=== PATIENT | male | born 1985 | race Caucasian/White ===

== ENCOUNTER 2018-04-18 21:18 | Emergency (ER) | payer MEDICAID, OTHER ==
[2018-04-19 01:35] LABS: TROPONIN-I < 0.012 ng/ml (0.000-0.120)
== END 2018-04-19 01:50 | disposition home or self-care (01) ==
LOC: FTE 04-19 01:50
DX: K21.9 Gastro-esophageal reflux disease without esophagitis (principal)
CPT/HCPCS: 36415; 71045; 84484; 93005; 99285-25

== ENCOUNTER 2018-04-24 20:34 | Emergency (ER) | payer SELFPAY, MEDICAID | END 2018-04-24 20:47 | disposition left against medical advice (07) | LOC: FTE 20:34 | DX: Z53.21 Procedure and treatment not carried out due to patient leaving prior to being seen by health care provider (principal) ==